=== PATIENT | male | born 1985 | race African-American/Black ===

== ENCOUNTER 2024-01-16 16:18 | Outpatient (CLI) | payer OTHER | END 2024-01-16 16:19 | disposition home or self-care (01) | LOC: CSHRAD 16:18 | PROVIDERS: ATTEND Student in an Organized Health Care Education/Training Program | DX: M54.50 Low back pain, unspecified (principal); M25.562 Pain in left knee; M25.851 Other specified joint disorders, right hip | CPT/HCPCS: 72100 ==